=== PATIENT | male | born 1940 | race Caucasian/White ===

== ENCOUNTER → 2018-12-24 | Outpatient (CLI) | payer OTHER, BC | LOC: HYPER 06:30 | DX: L97.821 Non-pressure chronic ulcer of other part of left lower leg limited to breakdown of skin (principal); I87.2 Venous insufficiency (chronic) (peripheral); L02.415 Cutaneous abscess of right lower limb; L03.116 Cellulitis of left lower limb; R60.0 Localized edema; I10 Essential (primary) hypertension ==